=== PATIENT | male | born 1975 | race Caucasian/White ===

== ENCOUNTER 2017-12-09 15:52 | Emergency (ER) | payer SELFPAY ==
[~2017-12-09] VITALS: Ht 185.4 cm; Wt 137.0 kg
[~2017-12-09 15:52] MED LIST: AMOX500T PO; LORT5TAB PO; Z.0.NO CURRENT MEDS
[2017-12-09 15:58] VITALS: BP 143/85; PULSE 100; RESP 20; TEMP 98.8; O2SAT 99
[2017-12-09] MEDS ORDERED: SODIUM CHLOR 0.9% 1000 ML INJ 1,000 ML IV SCH (16:40)
[2017-12-09 17:46] LABS: BILIRUBIN, URINE NEG (NEG); BLOOD, URINE NEG (NEG); GLUCOSE,URINE NEG (NEG); KETONE, URINE NEG (NEG); NITRITE,URINE NEG (NEG); PH, URINE 6.5 (5.0-8.5); URINE COLOR YELLOW (YELLW/STRAW); URINE LEUKOCYTE ESTERASE NEG (NEG)
[2017-12-09 17:52] LABS: ALT (GPT) 35 U/L (12-78); AST (GOT) 20 U/L (15-37); BICARBONATE 28.8 MEQ/L (21.0-32.0); BLOOD UREA NITROGEN 9 MG/DL (7-18); CALCIUM 8.9 MG/DL (8.5-10.1); CHLORIDE 101 MEQ/L (98-107); CREATININE 1.14 MG/DL (0.60-1.30); GLOMERULAR FILTRATION RATE 70 ML/MIN (>89); GLUCOSE,RANDOM 92 MG/DL (74-106); SODIUM (NA) 138 MEQ/L (136-145)
[2017-12-09 17:55] LABS: ALKALINE PHOSPHATASE 67 U/L (45-117); TOTAL BILIRUBIN ADULT 1.3 MG/DL (0.2-1.0)
[2017-12-09 18:24] LABS: AUTOMATED NEUTROPHIL # 10.4 TH/MM3 (1.8-7.7); BASOPHIL % 0.3 % (0.0-2.0); EOSINOPHIL # 0.1 TH/MM3 (0-0.4); EOSINOPHIL % 0.7 % (0.0-4.0); HEMATOCRIT 46.2 % (39.0-51.0); HEMOGLOBIN 16.4 GM/DL (13.0-17.0); LYMPH % 12.5 % (9.0-44.0); LYMPHOCYTE # 1.7 TH/MM3 (1.0-4.8); MEAN CELL VOLUME 90.5 FL (80.0-100.0); MEAN CORPUSCULAR HEMOGLOBIN 32.1 PG (27.0-34.0); MEAN CORPUSCULAR HGB CONC 35.5 % (32.0-36.0); MEAN PLATELET VOLUME 8.1 FL (7.0-11.0); MONO % 8.3 % (0.0-8.0); MONOCYTE # 1.1 TH/MM3 (0-0.9); NEUT % 78.2 % (16.0-70.0); PLATELET COUNT 222 TH/MM3 (150-450); RED BLOOD COUNT 5.11 MIL/MM3 (4.50-5.90); RED CELL DISTRIBUTION WIDTH 13.2 % (11.6-17.2); WHITE BLOOD COUNT 13.3 TH/MM3 (4.0-11.0)
[2017-12-09] MEDS ORDERED: IOHEXOL 350 MG/ML 10 ML VIAL (for RAD DIAG) IVCONTRAST ONE (18:50)
--- NOTE | 2017-12-09 18:50 | RADRPT ---
EXAM DATE: 12/09/2017 6:40 PM EDT AGE/SEX: 42 years / Male INDICATIONS: Lower abdominal pain for three days. CLINICAL DATA: This is the patient's initial encounter. Patient reports that signs and symptoms have been present for 1 day and indicates a pain score of 4/10. MEDICAL/SURGICAL HISTORY: None. Inguinal hernia repair. ORAL CONTRAST: No oral contrast ingested. RADIATION DOSE: 25.70 CTDI (mGy) ; Patient body habitus COMPARISON: No prior [place] exams available for comparison. TECHNIQUE: Multiple contiguous axial images were obtained through the abdomen and pelvis following b olus infusion of 95 ml Omnipaque 350 (iohexol) nonionic water-soluble contrast as a single exam dos e. No oral contrast ingested. Using automated exposure control and adjustment of the mA and/or kV ac cording to patient size, the radiation dose was kept as low as reasonably achievable to obtain optima l diagnostic quality images. FINDINGS: Lower Lungs: The visualized lower lungs are clear. Liver: The liver has a homogeneous density without space-occupying lesion. There is no dilation of th e biliary tree. The patient is status post cholecystectomy. Spleen: Homogeneous density without enlargement. Pancreas: Unremarkable without mass or calcification. Kidneys: Normal in size and shape. No evidence of mass or hydronephrosis. Adrenal Glands: Unremarkable. Aorta: The aorta and proximal iliac vessels are grossly unremarkable without aneurysmal dilation. Bowel/Mesentery: There is wall thickening and inflammatory change involving the proximal sigmoid col on extending approximately 5 cm. There are several diverticuli in this region and they're wispy soft tissue densities extending into the adjacent mesenteric fat. There is no free air or fluid. The bowel gas pattern is nonobstructive. Abdominal Wall: There is an anterior abdominal wall hernia containing omental fat in the periumbilic al region. Retroperitoneum: No evidence of adenopathy in the retrocrural, para-aortic, or deep pelvic regions. Bladder: Contours are smooth. Reproductive Organs: No abnormal masses or calcifications seen. Inguinal: The inguinal region is unremarkable without evidence of adenopathy. Bony Structures: Unremarkable. CONCLUSION: 1. Acute diverticulitis involving the proximal sigmoid colon with wall thickening and inflammatory c hange. There is no free air or fluid. 2. Status post cholecystectomy. 3. Periumbilical hernia containing fat. Electronically signed by: Sher Umana MD 12/09/2017 6:49 PM EDT
[2017-12-09] MEDS ORDERED: metroNIDAZOLE 500 MG INJ 100 ML IV ONE (19:15)
[2017-12-09] MEDS ORDERED: MORPHINE SULFATE 4 MG/ML INJ IV PUSH ONE (19:15)
[2017-12-09] MEDS ORDERED: ONDANSETRON ODT 4 MG TAB PO ONE (19:15)
[2017-12-09] MEDS ORDERED: CIPROFLOXACIN 400 MG PREMIX 200 ML IV ONE (19:15)
[2017-12-09] MEDS ORDERED: SODIUM CHLORID 0.9% 500 ML INJ 500 ML IV ONE (19:15)
[2017-12-09] MEDS ORDERED: KETOROLAC TROMETHAMINE 30 MG/ML (IVP) VIAL IV PUSH ONE (19:15)
--- NOTE | 2017-12-09 19:39 | PD ---
HPI Chief Complaint: Abdominal Pain Time Seen by Provider: 16:31 Travel History International Travel<30 days: No Contact w/Intl Traveler<30days: No Traveled to known affect area: No History of Present Illness HPI 42 yo male here for LLQ abd pain since 3 days. Not improving and worsening. Pain is 10/10 with movement, laying and not moving makes it better. No radiation. Normal BMs and urine. No fevers, chills or sweats. No injuries. Feels like a pulled muscle. Took some OTC meds with some relief. No chest pain or SOB. No other medical issues. PFSH Past Medical History Diminished Hearing: No Gastrointestinal Disorders: Yes (IBS , CHOLELITHIASIS ) Inguinal Hernia: Yes Immunizations Current: Yes Tetanus Vaccination: Never Vaccinated Influenza Vaccination: No Past Surgical History Abdominal Surgery: Yes (RIGHT INGUINAL HERNIA REPAIR IN CHILDHOOD) Cholecystectomy: Yes Social History Alcohol Use: Yes (socially ) Tobacco Use: No Substance Use: No Allergies-Medications (Allergen,Severity, Reaction): Coded Allergies: No Known Allergies (Verified Adverse Reaction, Unknown, 12/09/17) Reported Meds & Prescriptions Reported Meds & Active Scripts Active Review of Systems Except as stated in HPI: all other systems reviewed are Neg Physical Exam Narrative GENERAL: SKIN: Warm and dry. HEAD: Atraumatic. Normocephalic. EYES: Pupils equal and round. No scleral icterus. No injection or drainage. ENT: No nasal bleeding or discharge. Mucous membranes pink and moist. NECK: Trachea midline. No JVD. CARDIOVASCULAR: Regular rate and rhythm. RESPIRATORY: No accessory muscle use. Clear to auscultation. Breath sounds equal bilaterally. GASTROINTESTINAL: Abdomen soft, reproducible LLQ abdominal pain, nondistended. Hepatic and splenic margins not palpable. MUSCULOSKELETAL: Extremities without clubbing, cyanosis, or edema. No obvious deformities. NEUROLOGICAL: Awake and alert. No obvious cranial nerve deficits. Motor grossly within normal limits. Five out of 5 muscle strength in the arms and legs. Normal speech. PSYCHIATRIC: Appropriate mood and affect; insight and judgment normal. Data Data Last Documented VS Vital Signs Date Time Temp Pulse Resp B/P (MAP) Pulse Ox O2 Delivery O2 Flow Rate FiO2 12/09/17 15:58 98.8 100 20 143/85 (104) 99 Orders Orders Complete Blood Count With Diff (12/09/17 16:40) Comprehensive Metabolic Panel (12/09/17 16:40) Urinalysis - C+S If Indicated (12/09/17 16:40) Ct Abd/Pel W Iv Contrast(Rout) (12/09/17 16:40) Iv Access Insert/Monitor (12/09/17 16:40) Sodium Chlor 0.9% 1000 Ml Inj (Ns 1000 M (12/09/17 16:40) Iohexol 350 Inj (Omnipaque 350 Inj) (12/09/17 18:50) Metronidazole 500 Mg Inj (Flagyl 500 Mg (12/09/17 19:15) Ciprofloxacin 400 Mg Premix (Cipro 400 M (12/09/17 19:15) Morphine Inj (Morphine Inj) (12/09/17 19:15) Sodium Chlorid 0.9% 500 Ml Inj (Ns 500 M (12/09/17 19:15) Ondansetron Odt (Zofran Odt) (12/09/17 19:15) Ketorolac Inj (Toradol Inj) (12/09/17 19:15) Ed Discharge Order (12/09/17 19:33) Labs Laboratory Tests Test 12/09/17 16:51 12/09/17 16:55 White Blood Count 13.3 TH/MM3 Red Blood Count 5.11 MIL/MM3 Hemoglobin 16.4 GM/DL Hematocrit 46.2 % Mean Corpuscular Volume 90.5 FL Mean Corpuscular Hemoglobin 32.1 PG Mean Corpuscular Hemoglobin Concent 35.5 % Red Cell Distribution Width 13.2 % Platelet Count 222 TH/MM3 Mean Platelet Volume 8.1 FL Neutrophils (%) (Auto) 78.2 % Lymphocytes (%) (Auto) 12.5 % Monocytes (%) (Auto) 8.3 % Eosinophils (%) (Auto) 0.7 % Basophils (%) (Auto) 0.3 % Neutrophils # (Auto) 10.4 TH/MM3 Lymphocytes # (Auto) 1.7 TH/MM3 Monocytes # (Auto) 1.1 TH/MM3 Eosinophils # (Auto) 0.1 TH/MM3 Basophils # (Auto) 0.0 TH/MM3 CBC Comment DIFF FINAL Differential Comment Blood Urea Nitrogen 9 MG/DL Creatinine 1.14 MG/DL Random Glucose 92 MG/DL Total Protein 8.0 GM/DL Albumin 4.0 GM/DL Calcium Level 8.9 MG/DL Alkaline Phosphatase 67 U/L Aspartate Amino Transf (AST/SGOT) 20 U/L Alanine Aminotransferase (ALT/SGPT) 35 U/L Total Bilirubin 1.3 MG/DL Sodium Level 138 MEQ/L Potassium Level 3.7 MEQ/L Chloride Level 101 MEQ/L Carbon Dioxide Level 28.8 MEQ/L Anion Gap 8 MEQ/L Estimat Glomerular Filtration Rate 70 ML/MIN Urine Color YELLOW Urine Turbidity CLEAR Urine pH 6.5 Urine Specific [place] 1.013 Urine Protein NEG mg/dL Urine Glucose (UA) NEG mg/dL Urine Ketones NEG mg/dL Urine Occult Blood NEG Urine Nitrite NEG Urine Bilirubin NEG Urine Urobilinogen LESS THAN 2.0 MG/DL Urine Leukocyte Esterase NEG Urine RBC LESS THAN 1 /hpf Urine WBC LESS THAN 1 /hpf Microscopic Urinalysis Comment CULT NOT INDICATED MDM Medical Decision Making Medical Screen Exam Complete: Yes Emergency Medical Condition: Yes Medical Record Reviewed: Yes Interpretation(s) UA negative CBC & BMP Diagram 12/09/17 16:51 Total Protein 8.0, Albumin 4.0, Calcium Level 8.9, Alkaline Phosphatase 67, Aspartate Amino Transf (AST/SGOT) 20, Alanine Aminotransferase (ALT/SGPT) 35, Total Bilirubin 1.3 H Last Impressions Abdomen/Pelvis CT 12/09/17 1640 Signed Impressions: CONCLUSION: 1. Acute diverticulitis involving the proximal sigmoid colon with wall thicken ing and inflammatory change. There is no free air or fluid. 2. Status post cholecystectomy. 3. Periumbilical hernia containing fat. Differential Diagnosis diverticulitis vs acute abdomen vs muscle strain vs kidney stone Narrative Course 42 yo male that presents to the ED for evaluation of LLQ pain. Patient properly examined. Labs, meds and imaging ordered. This showed positive for diverticulitis. No sign of red flags. Will treat with antibiotics IV and pain meds. Discussed case with attending Dr Hernandez who agrees with plan. Given prescriptions for flagyl, cipro, lortab and diclofenac sodium. F/u with PCP. See ED if worsening symptoms. Diagnosis Primary Impression: Diverticulitis large intestine Qualified Codes: K57.32 - Diverticulitis of large intestine without perforation or abscess without bleeding Patient Instructions: Narcotic given in the ED, General Instructions Additional Instructions: Take medications as prescribed. Follow-up with PCP. See ED for any worsening symptoms. Do not drink or drive while taking pain medication. Apply ice or heat as needed for pain Med/Other Pt SpecificInfo: Prescription(s) given Disposition: 01 DISCHARGE HOME Condition: Jerad Cyr Dec 09, 2017 19:39
[2017-12-09] MEDS ORDERED: DICL75TA PO (19:40)
[2017-12-09] MEDS ORDERED: CIPR-9 PO (19:40)
[2017-12-09] MEDS ORDERED: METR-1 PO (19:40)
[2017-12-09] MEDS ORDERED: HYDR-3516 PO (19:41)
[2017-12-09 20:10] VITALS: RESP 15
== END 2017-12-09 22:15 | disposition home or self-care (01) ==
LOC: NEPC 15:52
DX: K57.92 Diverticulitis of intestine, part unspecified, without perforation or abscess without bleeding (principal); K42.9 Umbilical hernia without obstruction or gangrene; Z90.49 Acquired absence of other specified parts of digestive tract; Z87.19 Personal history of other diseases of the digestive system
CPT/HCPCS: 74177; 80053; 81001; 85025; 96361; 96365; 96375; 99284; J0744; J1885; J2270; J7030; J7040; Q9967